=== PATIENT | male | born 1985 | race Hispanic/Latino ===

== ENCOUNTER 2022-11-17 16:42 | Emergency (ER) | payer SELFPAY ==
[2022-11-17] VITALS (8 sets, daily range): BP systolic 119–142; BP diastolic 78–92
[~2022-11-17] VITALS: Ht 170.2 cm; Wt 80.0 kg
[2022-11-17 17:33] LABS: BASO% 0.6 % (0-3); EOS% 2.5 % (0-8); HEMATOCRIT 45.9 % (39.0-50.0); HEMOGLOBIN 15.2 g/dl (14.0-18.0); IMMATURE GRANULOCYTES 0.1 % (0.0-5.0); LYMPH% 25.7 % (15-41); MEAN CELL VOLUME 85.3 fL CALC (80.0-100.0); MEAN CORPUSCULAR HGB 28.3 pG CALC (26.0-32.0); MEAN CORPUSCULAR HGB CONC 33.1 g/dL CAL (32.0-36.0); MONO% 8.9 % (2-13); NEUT# 4.91 thou/uL (1.82-7.42); NEUT% 62.2 % (42-76); RED BLOOD COUNT 5.38 mill/uL (4.70-6.10); RED CELL DISTRI WIDTH 12.3 % (11.5-15.5)
[2022-11-17 17:55] LABS: ALBUMIN 4.6 g/dL (3.2-5.0); ALKALINE PHOSPHATASE 76 u/l (38-126); ANION GAP 12 (6-22 (CALC)); BILIRUBIN, TOTAL 0.4 mg/dL (0.2-1.3); BUN 13 mg/dL (9-20); BUN/CREATININE RATIO 15 (12-20 (CALC)); CARBON DIOXIDE 26 mmol/l (22-30); CHLORIDE 103 mmol/l (95-108); CREATININE 0.9 mg/dL (0.7-1.3); GFR FOR AFR.AMER. > 60 ML/MIN (>=60 (CALC)); GFR OTHER RACES > 60 ML/MIN (>=60 (CALC)); POTASSIUM 3.1 mmol/l (3.5-5.1); SGOT/AST 22 u/l (17-59); SODIUM 139 mmol/l (137-146); TOTAL PROTEIN 7.5 g/dL (6.3-8.2)
[2022-11-17] MEDS ORDERED: NAPROXEN500 MG PO ×2 (18:30→18:34)
[2022-11-17] MEDS ORDERED: METHOCARBAMOL500 MG PO ×2 (18:30→18:34)
== END 2022-11-17 18:51 | disposition home or self-care (01) | DRG 313 ==
LOC: ED 16:42
PROVIDERS: Family Medicine
DX: R07.89 Other chest pain (principal)